=== PATIENT | male | born 1980 | race Caucasian/White ===

== ENCOUNTER 2021-01-21 19:42 | Emergency (ER) | payer OTHER, SELFPAY ==
[2021-01-21 19:43] VITALS: BMI 31.5
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
[2021-01-21 19:44] VITALS: BP 170/90; PULSE 69; RESP 18; TEMP 37.2; O2SAT 98
[2021-01-21 20:02] VITALS: BP 158/86; PULSE 64; RESP 18; TEMP 37.2; O2SAT 98
== END 2021-01-21 20:04 | disposition home or self-care (01) ==
PROVIDERS: Emergency Provider Emergency Medicine; PCP Family Medicine
DX: S00.81XA Abrasion of other part of head, initial encounter (principal); S30.0XXA Contusion of lower back and pelvis, initial encounter; V86.55XA Driver of 3- or 4- wheeled all-terrain vehicle (ATV) injured in nontraffic accident, initial encounter; Y92.89 Other specified places as the place of occurrence of the external cause
CPT/HCPCS: 99203; G0463